=== PATIENT | female | born 1965 ===

== ENCOUNTER 2021-08-01 20:14 | Emergency (ER) | payer BC ==
[2021-08-01 20:22] VITALS: BP 130/70; PULSE 90; TEMP 98; BMI 27.3
[2021-08-03 10:06] LABS: SARS-CoV-2 NAA Not Detected (Not Detected)
== END 2021-08-01 22:29 | disposition home or self-care (01) ==
LOC: JER 20:14
DX: J06.9 Acute upper respiratory infection, unspecified (principal); Z20.822 Contact with and (suspected) exposure to COVID-19
CPT/HCPCS: 87804; 87807; 99283-25; C9803; U0003; U0005